=== PATIENT | male | born 1980 | race Caucasian/White ===

== ENCOUNTER 2017-12-01 10:19 | Inpatient (IN) | payer OTHER ==
--- NOTE | 2017-12-01 10:45 | ED ---
Psych HPI - General Chief Complaint: Psychiatric Symptoms Stated Complaint: Mental Health Time Seen by Provider: 12/01/17 10:26 Source: patient, police, RN notes reviewed Mode of arrival: ambulatory - History of Present Illness Initial Comments: 37-year-old male presented from it for court pickup. Patient has no specific complaints he states he feels fine does not see any current there per [facility] her psychiatrist. Patient states is not suicidal or homicidal. Denies any drug use currently no alcohol abuse. Patient is brought here by [facility]. Patient does admit that he's had some grief issues recently with the passing of his father. - Related Data Home Medications Medication Instructions Recorded Confirmed No Known Home Medications [No 12/01/17 12/01/17 Known Home Medications] Allergies Allergy/AdvReac Type Severity Reaction Status Date / Time No Known Allergies Allergy Verified 12/01/17 10:52 Review of Systems ROS Statement: Those systems with pertinent positive or pertinent negative responses have been documented in the HPI. ROS Other: All systems not noted in ROS Statement are negative. Past Medical History Past Medical History: No Reported History History of Any Multi-Drug Resistant Organisms: None Reported Past Surgical History: No Surgical Hx Reported Past Psychological History: No Psychological Hx Reported Smoking Status: Current every day smoker Past Alcohol Use History: None Reported Past Drug Use History: None Reported General Exam Limitations: no limitations General appearance: alert, in no apparent distress Head exam: Present: atraumatic, normocephalic, normal inspection Eye exam: Present: normal appearance, PERRL, EOMI. Absent: scleral icterus, conjunctival injection, periorbital swelling ENT exam: Present: normal exam, normal oropharynx, mucous membranes moist Neck exam: Present: normal inspection, full ROM. Absent: tenderness, meningismus, lymphadenopathy Respiratory exam: Present: normal lung sounds bilaterally. Absent: respiratory distress, wheezes, rales, rhonchi, stridor Cardiovascular Exam: Present: regular rate, normal rhythm, normal heart sounds. Absent: systolic murmur, diastolic murmur, rubs, gallop, clicks GI/Abdominal exam: Present: soft, normal bowel sounds. Absent: distended, tenderness, guarding, rebound, rigid Course Vital Signs 12/01/17 12/01/17 10:21 12:30 Temperature 97.4 F L 96.9 F L Pulse Rate 100 82 Respiratory 18 12 Rate Blood Pressure 133/85 135/86 O2 Sat by Pulse 98 99 Oximetry Medical Decision Making - Medical Decision Making Patient was evaluated by [facility] patient be admitted at this time for further evaluation. Disposition Clinical Impression: Depression, Psychosis Disposition: ADMITTED IP TO THIS HOSP Condition: Stable Referrals: None,Stated [Primary Care Provider] - 1-2 days Time of Disposition: 12:52
[2017-12-01 13:15] LABS: Amphetamine Screen,Urine Not Detected (NotDetected); Barbiturate Screen,Urine Not Detected (NotDetected); Benzodiazepines Screen,Urine Not Detected (NotDetected); Cocaine Screen,Urine Not Detected (NotDetected); Methadone Screen, Urine Not Detected (NotDetected); Opiate Screen,Urine Not Detected (NotDetected); Oxycodone Screen, Urine Not Detected (NotDetected); Phencyclidine Screen,Urine Not Detected (NotDetected); Tricyclic Antidepressant,Urine Not Detected (NotDetected); Urn Cannabinoid Scrn Not Detected (NotDetected)
[2017-12-01] MEDS ORDERED: MAG HYDROX/AL HYDROX/SIMETH 30 ML CUP PO PRN (13:18)
[2017-12-01] MEDS ORDERED: ZIPRASIDONE 20 MG VIAL IM PRN (13:18)
[2017-12-01] MEDS ORDERED: MAGNESIUM HYDROXIDE 2,400 MG/10 ML CUP PO PRN (13:18)
[2017-12-01] MEDS ORDERED: ACETAMINOPHEN TAB 325 MG TAB PO PRN (13:18)
[2017-12-01] MEDS ORDERED: LORazepam 1 MG TAB PO PRN (13:18)
[2017-12-01 14:55] VITALS: RESP 16; BMI 21.2
[2017-12-01] MEDS ORDERED: TEMAZEPAM 15 MG CAP PO PRN (15:12)
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
[2017-12-01 16:46] LABS: Appearance,Urine Clear (Clear); Bilirubin,Urine Negative (Negative); Blood,Urine Negative (Negative); Color,Urine Yellow; Glucose,Urine (UA) Negative (Negative); Ketones,Urine 1+ (Negative); Leukocyte Esterase,Urine Negative (Negative); Nitrite,Urine Negative (Negative); PH, Urine 5.5 (5.0-8.0); Protein,Urine Negative (Negative); Specific Gravity,Urine 1.016 (1.001-1.035); Urobilinogen,Urine <2.0 mg/dL (<2.0)
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
[2017-12-02 09:51] LABS: Basophils % (A) 0 %; Eosinophils # (A) 0.1 k/uL (0-0.7); Eosinophils % (A) 1 %; HCT 45.4 % (39.0-53.0); HGB 15.7 gm/dL (13.0-17.5); Lymphocytes # (A) 1.5 k/uL (1.0-4.8); Lymphocytes % (A) 18 %; MCH 30.8 pg (25.0-35.0); MCHC 34.6 g/dL (31.0-37.0); MCV 89.1 fL (80.0-100.0); Mean Platelet Volume 6.8; Monocytes # (A) 0.3 k/uL (0-1.0); Monocytes % (A) 4 %; Neutrophils % (A) 74 %; Platelet Count 284 k/uL (150-450); RBC 5.09 m/uL (4.30-5.90); RDW 12.4 % (11.5-15.5); WBC 8.1 k/uL (3.8-10.6)
[2017-12-02 09:56] LABS: ALT 27 U/L (21-72); AST 21 U/L (17-59); Albumin 4.6 g/dL (3.5-5.0); Alkaline Phosphatase 61 U/L (38-126); Anion Gap 18 mmol/L; Blood Urea Nitrogen 14 mg/dL (9-20); Calcium 9.9 mg/dL (8.4-10.2); Carbon Dioxide 26 mmol/L (22-30); Chloride 100 mmol/L (98-107); Glucose 99 mg/dL (74-99); Potassium 4.2 mmol/L (3.5-5.1); Sodium 144 mmol/L (137-145); Total Bilirubin 0.5 mg/dL (0.2-1.3); Total Protein 7.5 g/dL (6.3-8.2)
--- NOTE | 2017-12-02 23:09 | P.PN ---
Progress Note - Text Progress Note Date: 12/02/17 I Patient was seen today. He denies any complaints. He says he is doing well. He denies symptoms of psychosis, luiza and depression. He reports good sleep and eating well. No behavioral problms reported. He is eager to be discharged. He states the lady who petitioned him will pick him up. Mental status exam Patient is 37 year old male. He was dressed in hospital attire. He is pleasant and cooperative. His speech and thought process are goal directed. His mood is reported as good and affect appropriate. He denies current auditory or visual halluciantions. He denes paranoia and did not appear delusional. He denies suicidal or homicidal ideations. He is alert and oriented to time place and person. Has fair insight and judgement. Assessment Currently being observed for symptoms with out any medications Plan Not on any medications Plan to discharge him on 12/04/17 if he continues to do well with out any complaints Monitor for symptoms
--- NOTE | 2017-12-03 18:49 | P.PN ---
Progress Note - Text Progress Note Date: 12/03/17 Patient was seen today. He reports doing well. He reports 100% attendance in groups. He claims to have talked to his sister-in -law over the phone. He says his [id number] has agreed to pick him when he gets discharged. He is eagerly waiting to be discharged. He says he sleeps for seven hours. He says he is currently adjusting to his new routine as he claims to have worked midnight shifts prior to his current admission. He reports good appetite and is eating well. He denies current symptoms of psychosis, luiza and depression. He denies current suicidal or homicidal ideations. Mental status exam He is 37 year old male. He is dressed appropraitely. He is pleasant and cooperative. He maintains good eye contact. No psychomotoe agitation or retardation noted. His speech and thought process are goal directed. His mood is reported as good and affect broad. He denies auditory or visual halluciantions. He denies paranoia and is not delusional. He denies suicidal or homicidal ideations. He is alert and oriented to time place and person. Has fair insight and judgement. Assessment Currently being observed for symptoms with out any medications Plan Not on any medications Plan to discharge him on 12/04/17 if he continues to do well with out any complaints Monitor for symptoms
[2017-12-04 06:37] VITALS: BP 119/61; PULSE 68; TEMP 97.6
--- NOTE | 2017-12-04 08:38 | P.DS ---
Providers Date of admission: 12/01/17 12:56 Attending physician: Odilia Koch Consults: 12/01/17 13:18 Consult Physician Routine Consulting Provider: [facility] Consult Reason/Comments: H and P and medical management Do you want consulting provider notified?: Yes Primary care physician: Stated None Hospital Course: Patient had his psychiatric evaluation, psychosocial evaluation and physical examination. After psychiatric examination, he was not started on any psychiatric medications since I did not see any psychiatric condition that can be treated with medication. He received milieu therapy group therapy individual therapy occupational therapy recreational therapy and medication education. He attended all the groups and interacted with other patients and staff members. He did not show any evidence of psychosis or disturbed behavior. He did not require any psychiatric medication even on a when necessary basis. He did not take even sleeping pill on a when necessary basis. Since no psychiatric problems where detected including behavioral issues it was agreed to discharge him. Condition on discharge: This is a white ambulatory male with good hygiene. He is polite friendly and cooperative his speech is spontaneous relevant and goal- directed. His mood is mildly anxious and affect is appropriate to the thought content. He continues to insist that he is not suicidal or homicidal. He also denies hallucinations and delusional thinking. His insight is adequate and judgment is also adequate. He is well oriented with good memory concentration general knowledge etc. Diagnosis on discharge: No evidence of psychosis or other major psychiatric issues. NKDA. Patient was advised and agreed to see the doctor if he notices any changes in mood or thinking affecting his behavior, feelings, or relationships Patient Condition at Discharge: Good Plan - Discharge Summary Discharge Rx Participant: No New Discharge Prescriptions: Continue No Known Home Medications [No Known Home Medications] Discharge Medication List No Known Home Medications [No Known Home Medications] 12/01/17 [History] Follow up Appointment(s)/Referral(s): None,Stated [Primary Care Provider] - 1-2 days
== END 2017-12-04 14:46 | disposition home or self-care (01) | DRG 885 ==
LOC: EC 10:19 → 3MHU 12:56
PROVIDERS: ADMIT Psychiatry & Neurology Psychiatry; ATTEND Psychiatry & Neurology Psychiatry
DX: F25.9 Schizoaffective disorder, unspecified (principal); F12.10 Cannabis abuse, uncomplicated; F17.200 Nicotine dependence, unspecified, uncomplicated; Z63.4 Disappearance and death of family member
CPT/HCPCS: 80053; 80306; 81003; 82075; 84443; 85025; 99285